=== PATIENT | male | born 1950 | race African-American/Black ===

== ENCOUNTER 2016-07-27 15:03 | Emergency (ER) | payer OTHER ==
[2016-07-27 15:13] VITALS: TEMP 98.5; BMI 41.3
[2016-07-27 15:24] LABS: MPV 8.3 fL (7.4-10.4)
[2016-07-27 15:37] LABS: BLOOD UREA NITROGEN 49 MG/DL (9-20); CALC CORRECTED 9.9 MG/DL (8.4-10.2); CALCIUM 8.1 MG/DL (8.4-10.2); CALCULATED OSMOLALITY 276 MOs/Kg (270-290); CHLORIDE 106 mEq/L (98-107); GLUCOSE 148 MG/DL (70-99); SODIUM LEVEL 135 mEq/L (137-146); TOTAL PROTEIN 6.4 G/DL (6.3-8.2)
[2016-07-27 15:48] LABS: SEG NEUTROPHIL 90 % (45-76); TOTAL CELL COUNT 100
--- NOTE | 2016-07-27 17:24 | EDPRACDOC ---
- General Information Information Source: Patient Mode Of Arrival: Car - History of Present Illness Onset: 2 days HPI: PT COMPLAINS OF INCREASING REDNESS, SWELLING AND PAIN TO LEFT LOWER EXT X 2 DAYS , PT HAS HX OF CELLULITIS IN RLE. PT STATES JUST TOOK A TRIP TO [place] AND BACK, DENIES CP OR SOBR, NO N/V/D. PT WENT TO SEE PCP TODAY, REFERRED TO ED FOR FURTHER EVALUATION. NO FEVER OR CHILLS. Mechanism: Reports: None Circumstances: Reports: Spontaneous History of: Reports: None Severity: Reports: Moderate Able to Bear Weight: Limited Associated Signs & Symptoms: Reports: Swelling Pain In: Reports: Leg <Victor Hugo Novak - Last Filed: 07/27/16 18:14> <James Muñoz - Last Filed: 07/27/16 19:17> - General Information Chief Complaint: Lower Leg Pain Stated Complaint: R/O BLOOD CLOT Time Seen by Provider: 07/27/16 17:18 Home Medications: Home Medications Prednisone 10 mg PO DAILY 07/08/14 Azathioprine 150 mg PO DAILY 04/07/16 Furosemide [Lasix] 20 mg PO BID 06/04/16 Oxycodone Immediate Release [Oxycodone Immediate Release (OxyIR)] 5 mg PO Q4H PRN #20 tablet 06/09/16 Probiotic Blend [Uzma Q] 1 tab PO BIDLS #30 tablet 06/09/16 Levofloxacin [Levaquin] 750 mg PO Q24H #7 tablet 06/14/16 Spironolactone [Aldactone] 100 mg PO BID #60 tablet 06/14/16 Allergies/Adverse Reactions: Allergies Allergy/AdvReac Type Severity Reaction Status Date / Time Iodinated Contrast Media - Allergy Severe Rash-Genera Verified 07/27/16 15:09 IV Dye lized sulindac Allergy Unknown Verified 07/27/16 15:09 ED Past Medical History - History Reviewed Yes Nurses notes reviewed and agree except as marked - Patient Medical History Neurological History: Denies: Cerebrovascular Accident, Seizures Cardiac History: Reports: Hypertension (denies), Congestive Heart Failure ( denies), Stress Test (06/2014: ischemia in apical mid portion of anteroseptal wall), Hypercholesterolemia, Valvular Heart Disease. Denies: Coronary Artery Disease Respiratory History: Reports: Pneumonia. Denies: Asthma, COPD GI/ History: Reports: Renal Disease (Renal insufficiency today after angiogram yesterday.), Kidney Stones, Liver Failure (Item immune hepatitis.), Gastroesophageal Reflux, IBD (ULCERATIVE COLITS), BPH Musculoskeletal History: Reports: Osteoarthritis. Denies: Arthritis, Rheumatoid Arthritis Psychological History: Denies: Depression, Anxiety, Substance Use Disorder Systemic History: Reports: Anemia. Denies: Cancer, Hyperthyroidism, Hypothyroidism Surgical History: Reports: Appendectomy, Tonsillectomy/Adnoidectomy - Family Medical History Reports: Cancer (MOTHER, SISTER), Cardiac Disorders (Father). Denies: Hypertension, Diabetes, Stroke - Social Medical History Smoking Status: Never smoker Social History: Denies: Substance Use Disorder ETOH: None Substance Abuse: None <Victor Hugo Novak - Last Filed: 07/27/16 18:14> EDM Review of Systems - Review of Systems Constitutional: negative: Chills, Fever Eyes: negative: Blurred Vision, Double Vision Ears: negative: Drainage Throat: negative: Pain Nose: negative: Congestion, Discharge Respiratory: negative: Cough, Shortness of Breath, Wheezing Cardiovascular: negative: Chest Pain, Palpitations Gastrointestinal: negative: Diarrhea, Nausea, Pain, Vomiting Genitourinary: negative: Dysuria, Frequency Neurological: negative: Dizziness, Headache, Numbness, Weakness Musculoskeletal: Leg Integumentary: No Symptoms Reported <Victor Hugo Novak - Last Filed: 07/27/16 18:14> - Physical Exam Constitutional: Alert (Awake), No apparent distress Oriented to: Time, Person, Place Last recorded Vital Signs: Last Vital Signs Temp 98.5 F 07/27/16 15:09 Pulse 88 07/27/16 15:09 Resp 22 07/27/16 15:09 BP 138/58 L 07/27/16 15:09 Pulse Ox 100 07/27/16 15:09 Oxygen Pulse Oxygen Saturation 100 O2 Device Room Air Oxygen Flow Rate Fraction of Inspired Oxygen ( FIO2) - HEENT Head: Normal ( normocephalic) Eye Exam: Scleral Icterus Oropharynx: Normal (Pharynx:Moist without exudate,Gums-no swelling) Tympanic Membrane: Normal ENT EAC: Normal TMJ: Normal Nose: No Symptoms Reported (septum midline) Neck: Normal (FROM, trachea at midline) - Respiratory/Cardiovascular Respiratory: Normal - CTA (BBS clear to auscultation without adventitious sounds ) Cardiovascular: Normal (RRR without murmur, gallop or rub) - GI Auscultation: Normal (NABS) Palpation: Normal (Soft,No rebound or guarding, non distended) Tenderness: Non tender Mccracken's Sign: Negative - Musculoskeletal Back: Normal (Non-Tender) Extremities: Normal (Normal tone, Pulses 2+ No cyanosis or edema, FROM) - Integumentary Skin: Normal, Warm, Dry Lymphatics: Normal (no adenopathy) - Neurologic Memory Impaired: Normal Motor Function: Normal (Normal tone, Pulses 2+ No cyanosis or edema, FROM) Cranial Nerve: Normal (CN II-X11 intact sensation, strength 5/5) Cerebellar: Normal Mood Description: Normal Perception: Normal <Victor Hugo Novak - Last Filed: 07/27/16 18:14> - Physical Exam Last recorded Vital Signs: Last Vital Signs Temp 98.5 F 07/27/16 15:09 Pulse 84 07/27/16 19:04 Resp 18 07/27/16 19:04 BP 119/68 07/27/16 19:04 Pulse Ox 97 07/27/16 19:04 Oxygen Pulse Oxygen Saturation 97 O2 Device Room Air Oxygen Flow Rate Fraction of Inspired Oxygen ( FIO2) <James Muñoz - Last Filed: 07/27/16 19:17> ED Low Extremities Phys Exam - Thigh Left Thigh Symptoms: Normal - Knee Left Knee Symptoms: Normal Knee Ligaments: Normal Knee Meniscus: Normal - Lower Leg Left Lower Leg Symptoms: Swelling, Mild Tenderness, Other (WEEPING, MILD ERYTHEMA, NO INCREASED TEMP) - Foot Left Foot Symptoms: Swelling, Mild Tenderness - Ankle Left Ankle Symptoms: Swelling Achilles Tendon: Normal - Deficits Deficits: None, Capillary Refill. negative: Motor, Sensory, Pulse <Victor Hugo Novak - Last Filed: 07/27/16 18:14> - Differential Diagnosis Other (DVT, CELLULITIS) - Results 07/27/16 15:18 07/27/16 15:18 WBC 4.1 xk/uL (3.8-10.8) 07/27/16 15:18 RBC 2.21 xM/uL (4.70-6.10) L 07/27/16 15:18 Hgb 8.6 g/dL (14.0-18.0) L 07/27/16 15:18 Hct 24.4 % (42-52) L 07/27/16 15:18 MCV 110 fL (80-94) H 07/27/16 15:18 MCH 39.0 pg (27-32) H 07/27/16 15:18 MCHC 35.4 g/dl (33-36) 07/27/16 15:18 RDW 21.5 % (11.5-14.5) H 07/27/16 15:18 Plt Count 64 xk/uL (130-400) L 07/27/16 15:18 MPV 8.3 fL (7.4-10.4) 07/27/16 15:18 Neut % (Auto) Cancelled 07/27/16 15:18 Lymph % (Auto) Cancelled 07/27/16 15:18 [place] % (Auto) Cancelled 07/27/16 15:18 Eos % (Auto) Cancelled 07/27/16 15:18 Baso % (Auto) Cancelled 07/27/16 15:18 Absolute Neuts (auto) Cancelled 07/27/16 15:18 Absolute Lymphs (auto) Cancelled 07/27/16 15:18 Seg Neuts % (Manual) 90 % (45-76) H 07/27/16 15:18 Band Neutrophils % 4 % (0-5) 07/27/16 15:18 Lymphocytes % (Manual) 4 % (17-44) L 07/27/16 15:18 Monocytes % (Manual) 2 % (0-10) 07/27/16 15:18 Absolute Neutrophils 3.85 xk/uL (1.7-8.2) 07/27/16 15:18 Absolute Lymphocytes 0.16 xk/uL (0.65-4.75) L 07/27/16 15:18 Vacuolated Neuts 1+ 07/27/16 15:18 Toxic Granulation 1+ 07/27/16 15:18 Platelet Estimate Dec (NORMAL) 07/27/16 15:18 RBC Morphology 1+ aniso 1+ hypo 1+ polychrom 1+ macro 2+ poik 1+ teardrop 2+ target 1+ schisto 07/27/16 15:18 RBC Morphology 1+ aniso 1+ hypo 1+ polychrom 1+ macro 2+ poik 1+ teardrop 2+ target 1+ schisto 07/27/16 15:18 RBC Morphology 1+ aniso 1+ hypo 1+ polychrom 1+ macro 2+ poik 1+ teardrop 2+ target 1+ schisto 07/27/16 15:18 RBC Morphology 1+ aniso 1+ hypo 1+ polychrom 1+ macro 2+ poik 1+ teardrop 2+ target 1+ schisto 07/27/16 15:18 RBC Morphology 1+ aniso 1+ hypo 1+ polychrom 1+ macro 2+ poik 1+ teardrop 2+ target 1+ schisto 07/27/16 15:18 RBC Morphology 1+ aniso 1+ hypo 1+ polychrom 1+ macro 2+ poik 1+ teardrop 2+ target 1+ schisto 07/27/16 15:18 RBC Morphology 1+ aniso 1+ hypo 1+ polychrom 1+ macro 2+ poik 1+ teardrop 2+ target 1+ schisto 07/27/16 15:18 RBC Morphology 1+ aniso 1+ hypo 1+ polychrom 1+ macro 2+ poik 1+ teardrop 2+ target 1+ schisto 07/27/16 15:18 Sodium 135 mEq/L (137-146) L 07/27/16 15:18 Potassium 5.9 mEq/L (3.5-5.1) H 07/27/16 15:18 Chloride 106 mEq/L (98-107) 07/27/16 15:18 Carbon Dioxide 20 mMOL/L (22-33) L 07/27/16 15:18 Anion Gap 15 mEq/L (8-16) 07/27/16 15:18 BUN 49 MG/DL (9-20) H 07/27/16 15:18 Creatinine 1.90 MG/DL (0.66-1.25) H 07/27/16 15:18 Estimated GFR (MDRD) 44 mL/min (>=60) L 07/27/16 15:18 Glucose 148 MG/DL (70-99) H 07/27/16 15:18 Calculated Osmolality 276 MOs/Kg (270-290) 07/27/16 15:18 Calcium 8.1 MG/DL (8.4-10.2) L 07/27/16 15:18 Corrected Calcium 9.9 MG/DL (8.4-10.2) 07/27/16 15:18 Total Bilirubin 10.2 MG/DL (0.2-1.3) H 07/27/16 15:18 AST 68 IU/L (17-59) H 07/27/16 15:18 ALT 63 IU/L (21-72) 07/27/16 15:18 Alkaline Phosphatase 199 IU/L (50-160) H 07/27/16 15:18 Total Protein 6.4 G/DL (6.3-8.2) 07/27/16 15:18 Albumin 2.2 G/DL (3.5-5.0) L 07/27/16 15:18 Lab Results 07/27/16 07/27/16 15:18 15:18 WBC 4.1 RBC 2.21 L Hgb 8.6 L Hct 24.4 L MCV 110 H MCH 39.0 H MCHC 35.4 RDW 21.5 H Plt Count 64 L MPV 8.3 Neut % (Auto) Cancelled Lymph % (Auto) Cancelled [place] % (Auto) Cancelled Eos % (Auto) Cancelled Baso % (Auto) Cancelled Absolute Neuts (auto) Cancelled Absolute Lymphs (auto) Cancelled Seg Neuts % (Manual) 90 H Band Neutrophils % 4 Lymphocytes % (Manual) 4 L Monocytes % (Manual) 2 Absolute Neutrophils 3.85 Absolute Lymphocytes 0.16 L Vacuolated Neuts 1+ Toxic Granulation 1+ Platelet Estimate Dec RBC Morphology 1+ schisto Sodium 135 L Potassium 5.9 H Chloride 106 Carbon Dioxide 20 L Anion Gap 15 BUN 49 H Creatinine 1.90 H Estimated GFR (MDRD) 44 L Glucose 148 H Calculated Osmolality 276 Calcium 8.1 L Corrected Calcium 9.9 Total Bilirubin 10.2 H AST 68 H ALT 63 Alkaline Phosphatase 199 H Total Protein 6.4 Albumin 2.2 L - Additional Information DISCUSSED WITH DR MUÑOZ, CARE ENDORSED TO HIM PENDING FINAL DISPOSITION <Victor Hugo Novak - Last Filed: 07/27/16 18:14> - Results 07/27/16 15:18 07/27/16 15:18 WBC 4.1 xk/uL (3.8-10.8) 07/27/16 15:18 RBC 2.21 xM/uL (4.70-6.10) L 07/27/16 15:18 Hgb 8.6 g/dL (14.0-18.0) L 07/27/16 15:18 Hct 24.4 % (42-52) L 07/27/16 15:18 MCV 110 fL (80-94) H 07/27/16 15:18 MCH 39.0 pg (27-32) H 07/27/16 15:18 MCHC 35.4 g/dl (33-36) 07/27/16 15:18 RDW 21.5 % (11.5-14.5) H 07/27/16 15:18 Plt Count 64 xk/uL (130-400) L 07/27/16 15:18 MPV 8.3 fL (7.4-10.4) 07/27/16 15:18 Neut % (Auto) Cancelled 07/27/16 15:18 Lymph % (Auto) Cancelled 07/27/16 15:18 [place] % (Auto) Cancelled 07/27/16 15:18 Eos % (Auto) Cancelled 07/27/16 15:18 Baso % (Auto) Cancelled 07/27/16 15:18 Absolute Neuts (auto) Cancelled 07/27/16 15:18 Absolute Lymphs (auto) Cancelled 07/27/16 15:18 Seg Neuts % (Manual) 90 % (45-76) H 07/27/16 15:18 Band Neutrophils % 4 % (0-5) 07/27/16 15:18 Lymphocytes % (Manual) 4 % (17-44) L 07/27/16 15:18 Monocytes % (Manual) 2 % (0-10) 07/27/16 15:18 Absolute Neutrophils 3.85 xk/uL (1.7-8.2) 07/27/16 15:18 Absolute Lymphocytes 0.16 xk/uL (0.65-4.75) L 07/27/16 15:18 Vacuolated Neuts 1+ 07/27/16 15:18 Toxic Granulation 1+ 07/27/16 15:18 Platelet Estimate Dec (NORMAL) 07/27/16 15:18 RBC Morphology 1+ aniso 1+ hypo 1+ polychrom 1+ macro 2+ poik 1+ teardrop 2+ target 1+ schisto 07/27/16 15:18 RBC Morphology 1+ aniso 1+ hypo 1+ polychrom 1+ macro 2+ poik 1+ teardrop 2+ target 1+ schisto 07/27/16 15:18 RBC Morphology 1+ aniso 1+ hypo 1+ polychrom 1+ macro 2+ poik 1+ teardrop 2+ target 1+ schisto 07/27/16 15:18 RBC Morphology 1+ aniso 1+ hypo 1+ polychrom 1+ macro 2+ poik 1+ teardrop 2+ target 1+ schisto 07/27/16 15:18 RBC Morphology 1+ aniso 1+ hypo 1+ polychrom 1+ macro 2+ poik 1+ teardrop 2+ target 1+ schisto 07/27/16 15:18 RBC Morphology 1+ aniso 1+ hypo 1+ polychrom 1+ macro 2+ poik 1+ teardrop 2+ target 1+ schisto 07/27/16 15:18 RBC Morphology 1+ aniso 1+ hypo 1+ polychrom 1+ macro 2+ poik 1+ teardrop 2+ target 1+ schisto 07/27/16 15:18 RBC Morphology 1+ aniso 1+ hypo 1+ polychrom 1+ macro 2+ poik 1+ teardrop 2+ target 1+ schisto 07/27/16 15:18 PT 19.0 SEC (9.2-11.2) H 07/27/16 15:18 INR 1.8 07/27/16 15:18 APTT 38.7 SEC (22-35) H 07/27/16 15:18 Sodium 135 mEq/L (137-146) L 07/27/16 15:18 Potassium 5.9 mEq/L (3.5-5.1) H 07/27/16 15:18 Chloride 106 mEq/L (98-107) 07/27/16 15:18 Carbon Dioxide 20 mMOL/L (22-33) L 07/27/16 15:18 Anion Gap 15 mEq/L (8-16) 07/27/16 15:18 BUN 49 MG/DL (9-20) H 07/27/16 15:18 Creatinine 1.90 MG/DL (0.66-1.25) H 07/27/16 15:18 Estimated GFR (MDRD) 44 mL/min (>=60) L 07/27/16 15:18 Glucose 148 MG/DL (70-99) H 07/27/16 15:18 Calculated Osmolality 276 MOs/Kg (270-290) 07/27/16 15:18 Calcium 8.1 MG/DL (8.4-10.2) L 07/27/16 15:18 Corrected Calcium 9.9 MG/DL (8.4-10.2) 07/27/16 15:18 Total Bilirubin 10.2 MG/DL (0.2-1.3) H 07/27/16 15:18 AST 68 IU/L (17-59) H 07/27/16 15:18 ALT 63 IU/L (21-72) 07/27/16 15:18 Alkaline Phosphatase 199 IU/L (50-160) H 07/27/16 15:18 Troponin I < 0.01 ng/mL (<.04) 07/27/16 15:18 Total Protein 6.4 G/DL (6.3-8.2) 07/27/16 15:18 Albumin 2.2 G/DL (3.5-5.0) L 07/27/16 15:18 Lab Results 07/27/16 07/27/16 07/27/16 15:18 15:18 15:18 WBC 4.1 RBC 2.21 L Hgb 8.6 L Hct 24.4 L MCV 110 H MCH 39.0 H MCHC 35.4 RDW 21.5 H Plt Count 64 L MPV 8.3 Neut % (Auto) Cancelled Lymph % (Auto) Cancelled [place] % (Auto) Cancelled Eos % (Auto) Cancelled Baso % (Auto) Cancelled Absolute Neuts (auto) Cancelled Absolute Lymphs (auto) Cancelled Seg Neuts % (Manual) 90 H Band Neutrophils % 4 Lymphocytes % (Manual) 4 L Monocytes % (Manual) 2 Absolute Neutrophils 3.85 Absolute Lymphocytes 0.16 L Vacuolated Neuts 1+ Toxic Granulation 1+ Platelet Estimate Dec RBC Morphology 1+ schisto PT 19.0 H INR 1.8 APTT 38.7 H Sodium Potassium Chloride Carbon Dioxide Anion Gap BUN Creatinine Estimated GFR (MDRD) Glucose Calculated Osmolality Calcium Corrected Calcium Total Bilirubin AST ALT Alkaline Phosphatase Troponin I < 0.01 Total Protein Albumin 07/27/16 15:18 WBC RBC Hgb Hct MCV MCH MCHC RDW Plt Count MPV Neut % (Auto) Lymph % (Auto) [place] % (Auto) Eos % (Auto) Baso % (Auto) Absolute Neuts (auto) Absolute Lymphs (auto) Seg Neuts % (Manual) Band Neutrophils % Lymphocytes % (Manual) Monocytes % (Manual) Absolute Neutrophils Absolute Lymphocytes Vacuolated Neuts Toxic Granulation Platelet Estimate RBC Morphology PT INR APTT Sodium 135 L Potassium 5.9 H Chloride 106 Carbon Dioxide 20 L Anion Gap 15 BUN 49 H Creatinine 1.90 H Estimated GFR (MDRD) 44 L Glucose 148 H Calculated Osmolality 276 Calcium 8.1 L Corrected Calcium 9.9 Total Bilirubin 10.2 H AST 68 H ALT 63 Alkaline Phosphatase 199 H Troponin I Total Protein 6.4 Albumin 2.2 L <James Muñoz - Last Filed: 07/27/16 19:17> <Victor Hugo Novak - Last Filed: 07/27/16 18:14> Decision Time to Discharge: 19:10 - Departure Yes I personally saw and evaluated the patient. Disposition: Home Education/Counseling Given To: Patient Education/Counseling Given Regarding: Diagnosis, Treatment, Prognosis, Follow Up <James Muñoz - Last Filed: 07/27/16 19:17> - Departure Condition: Stable Final Diagnosis: Left leg swelling, Chronic renal insufficiency, Chronic anemia Instructions: Leg Edema (ED), Liver Disease Diet (GEN) Referrals: Anshu Craig MD [Primary Care Provider] - Call for Appointment
[2016-07-27 17:34] LABS: PARTIAL THROMB. TIME 38.7 SEC (22-35); PT-INR 1.8
--- NOTE | 2016-07-27 18:26 | DIRPT ---
CLINICAL DATA: Left leg pain and swelling for 4 days. EXAM: LEFT LOWER EXTREMITY VENOUS DOPPLER ULTRASOUND TECHNIQUE: Trimble-scale sonography with graded compression, as well as color Doppler and duplex ultrasound were performed to evaluate the lower extremity deep venous systems from the level of the common femoral vein and including the common femoral, femoral, profunda femoral, popliteal and calf veins including the posterior tibial, peroneal and gastrocnemius veins when visible. The superficial great saphenous vein was also interrogated. Spectral Doppler was utilized to evaluate flow at rest and with distal augmentation maneuvers in the common femoral, femoral and popliteal veins. COMPARISON: None. FINDINGS: Contralateral Common Femoral Vein: Respiratory phasicity is normal and symmetric with the symptomatic side. No evidence of thrombus. Normal compressibility. Common Femoral Vein: No evidence of thrombus. Normal compressibility, respiratory phasicity and response to augmentation. Saphenofemoral Junction: No evidence of thrombus. Normal compressibility and flow on color Doppler imaging. Profunda Femoral Vein: No evidence of thrombus. Normal compressibility and flow on color Doppler imaging. Femoral Vein: No evidence of thrombus. Normal compressibility, respiratory phasicity and response to augmentation. Popliteal Vein: No evidence of thrombus. Normal compressibility, respiratory phasicity and response to augmentation. Calf Veins: No evidence of thrombus in the posterior tibial vein. Normal compressibility and flow on color Doppler imaging. Perennial vein is not visualized secondary to body habitus and edema. Superficial Great Saphenous Vein: No evidence of thrombus. Normal compressibility and flow on color Doppler imaging. Venous Reflux: None. Other Findings: Diffuse soft tissue edema is noted throughout the lower extremity. No focal fluid collection. IMPRESSION: No evidence of left lower extremity deep venous thrombosis. Subcutaneous soft tissue edema. Electronically Signed By: Laurence Hyatt M.D. On: 07/27/2016 18:24
[2016-07-27 19:47] VITALS: BP 119/62; PULSE 82
== END 2016-07-27 19:40 | disposition home or self-care (01) ==
LOC: ED 15:03
DX: M79.89 Other specified soft tissue disorders (principal); N18.9 Chronic kidney disease, unspecified; D64.9 Anemia, unspecified; Z79.899 Other long term (current) drug therapy
CPT/HCPCS: 36415; 80053; 84484; 85007; 85027; 85610; 85730; 99283